=== PATIENT | female | born 1995 | race Two or more races ===

== ENCOUNTER 2016-09-10 10:40 | Emergency (ER) | payer SELFPAY ==
[~2016-09-10] VITALS: Ht 166.4 cm; Wt 107.2 kg
[2016-09-10] MEDS ORDERED: SODIUM CHLORIDE 0.9% 1,000ML IVBOLUS ONE (11:30)
[2016-09-10] MEDS ORDERED: SODIUM CHLORIDE FLUSH 10ML SYR IVF ONE (11:30)
[2016-09-10 11:58] LABS: BLOOD UREA NITROGEN 14 mg/dL (7-18)
[2016-09-10 12:55] VITALS: BP 129/73
== END 2016-09-10 12:57 | disposition home or self-care (01) ==
LOC: ED 11:07
DX: R00.2 Palpitations (principal); F41.1 Generalized anxiety disorder; D64.9 Anemia, unspecified
CPT/HCPCS: 36415; 80048; 82040; 84703; 85025; 93005; 96360; 99285; J7030; Q0177